=== PATIENT | female | born 1980 | race African-American/Black ===

== ENCOUNTER 2025-04-26 09:59 | Emergency (ER) | payer OTHER ==
[~2025-04-26] VITALS: Ht 167.6 cm; Wt 75.5 kg
[2025-04-26] MEDS ORDERED: REFR0.5D8 OU (10:13)
[2025-04-26] MEDS ORDERED: AMLO1TAB24 PO (10:13)
[2025-04-26] MEDS ORDERED: VITAD400CA PO (10:13)
[2025-04-26] MEDS ORDERED: CLAR10CA3 PO (10:13)
[2025-04-26] MEDS ORDERED: CITA40TA6 PO (10:13)
[2025-04-26] MEDS ORDERED: TRAZ-189 PO (10:13)
[2025-04-26] MEDS ORDERED: LIDO1ADH93 TOP (10:13)
[2025-04-26] MEDS ORDERED: HYDR-3490 PO (10:13)
[2025-04-26] MEDS ORDERED: LOSA100T46 PO (10:13)
[2025-04-26] MEDS: hydroCHLOROthiazide 25 MG TAB PO ONE (10:27)
[2025-04-26] MEDS: LOSARTAN 50 MG TABLET PO ONE (10:28)
[2025-04-26] MEDS: amLODIPine 5 MG TAB PO ONE (10:29)
[2025-04-26 10:38] LABS: BASO # 0.0 10^3/uL (0.0-0.2); BASO % 0.6 % (0.0-1.0); EOS # 0.1 10^3/uL (0.0-0.5); EOS % 1.5 % (0.0-3.0); LYMPH # 1.9 10^3/uL (1.5-5.0); LYMPH % 40.9 % (24.0-44.0); MONO # 0.6 10^3/uL (0.0-0.8); MONO % 13.3 % (2.0-8.0); NEUTROPHILS # 2.0 10^3/uL (1.5-8.5); NEUTROPHILS % 43.7 % (36.0-66.0); PLATELET COUNT, AUTOMATED 244 10^3/uL (150-450)
[2025-04-26 10:54] LABS: ALT/SGPT 106 U/L (7.0-40); AST/SGOT 84 U/L (<34); CALCIUM LEVEL 8.9 MG/DL (8.5-10.1); CARBON DIOXIDE LEVEL 27 MMOL/L (20-31); CHLORIDE LEVEL 100 MMOL/L (98-107); CREATININE FOR GFR 0.67 MG/DL (0.55-1.30); GLOMERULAR FILTRATION RATE > 90.0 (>58); POTASSIUM SERUM 4.0 MMOL/L (3.5-5.1); SODIUM LEVEL 136 MMOL/L (136-145)
[2025-04-26 11:04] LABS: APPEARANCE, URINE CLEAR (CLEAR); BACTERIA, URINE AUTO NEGATIVE (NEGATIVE); BILIRUBIN, URINE AUTO NEGATIVE (NEGATIVE); BLOOD, URINE BLOOD 2+ (NEGATIVE); GLUCOSE, URINE (UA) AUTO NEGATIVE (NEGATIVE); KETONE, URINE AUTO NEGATIVE (NEGATIVE); LEUKOCYTE ESTERASE, URINE AUTO 3+ (NEGATIVE); NITRITE, URINE AUTO NEGATIVE (NEGATIVE); PROTEIN, URINE AUTO NEGATIVE (NEGATIVE); RBC, URINE AUTO 13 /HPF (0-3); SPECIFIC GRAVITY URINE AUTO 1.006 (1.002-1.035); SQUAMOUS EPITHELIAL CELL UR AU 2 /HPF (0-6); UROBILINOGEN, URINE AUTO 0.2 mg/dL (0.0-2.0); WBC, URINE AUTO 32 /HPF (0-3)
[2025-04-26 11:23] LABS: CK-MB VALUE MASS < 1.0 NG/ML (<3.6)
[2025-04-26 11:24] LABS: CPK CREATINE PHOSPHOKINASE 96 U/L (34-145)
[2025-04-26 11:54] LABS: CK-MB VALUE MASS < 1.0 NG/ML (<3.6)
[2025-04-26 11:55] LABS: CPK CREATINE PHOSPHOKINASE 93 U/L (34-145)
[2025-04-26 13:56] VITALS: BP 280/109
[2025-04-26] MEDS: **hydrALAZINE** 50 MG TAB PO ONE (13:56)
[2025-04-26] MEDS ORDERED: LORA-1164 PO (13:57)
[2025-04-26] MEDS ORDERED: D31000CA4 PO (13:57)
[2025-04-26] MEDS ORDERED: HOME MED LIST COMPLETE! XX SCH (14:00)
[2025-04-26] MEDS ORDERED: HYDR50TA46 PO (15:07)
[2025-04-26 15:31] VITALS: BP 208/109; TEMP 98.6; O2SAT 98
== END 2025-04-26 15:33 | disposition home or self-care (01) ==
LOC: M ED 09:59 → EDBD 09:59 → M ED 15:33
DX: I10 Essential (primary) hypertension (principal); Z88.8 Allergy status to other drugs, medicaments and biological substances; Z79.899 Other long term (current) drug therapy